=== PATIENT | female | born 1965 | race African-American/Black ===

== ENCOUNTER 2018-02-26 11:19 | Inpatient (IN) | payer OTHER ==
[~2018-02-26] VITALS: Ht 154.9 cm; Wt 120.8 kg
[2018-02-26 11:34] VITALS: Ht 154.9 cm; Wt 120.8 kg
[2018-02-26 13:05] LABS: CALCIUM 9.7 mg/dL (8.5-10.1); CARBON DIOXIDE 24.2 mmol/L (21-32); CHLORIDE SERUM 102 mmol/L (98-107); CREATININE SERUM 0.8 mg/dL (0.6-1.0); GFR1 > 60 mL/min; GLUCOSE SERUM 155 mg/dL (74-106); SODIUM SERUM 137 mmol/L (136-145)
[2018-02-26 13:08] LABS: ALBUMIN 3.5 g/dL (3.4-5.0); ALKALINE PHOSPHATASE 105 U/L (46-116); ALT/SGPT 20 U/L (14-59); AMYLASE 41 U/L (25-115); AST/SGOT 12 U/L (15-37); BILIRUBIN TOTAL 0.5 mg/dL (0.20-1.00); LIPASE 167 IU/L (73-393)
[2018-02-26 13:09] LABS: TOTAL PROTEIN, SERUM 8.9 g/dL (6.4-8.2)
[2018-02-26 13:11] LABS: PLATELET COUNT 360 x10^3mcL (130-400); RED CELL DISTRIBUTION WIDTH 13.2 % (11.5-14.5)
[2018-02-26 13:57] LABS: UA SPECIFIC GRAVITY 1.015 (1.005-1.035); urine erythrocyte NEGATIVE (NEGATIVE)
[2018-02-26 14:08] LABS: microscopic required? YES
[2018-02-26 16:18] LABS: BAND NEUTROPHIL 8 % (0-10); BASOPHIL 0 % (0-2); METAMYELOCTE 1 % (0-2); MONOCYTE 4 % (0-7); MYELOCYTE 2 % (0-2); SEGMENTED NEUTROPHILS 70 % (37-75)
[2018-02-26 16:21] LABS: ovalocyte/elliptocyte 1+
[2018-02-26 16:23] LABS: PLATELET MORPHOLOGY PLATELETS NORMAL; rbc morphology (normal/abnorm) NORMAL (NORMAL)
[2018-02-26] MEDS ORDERED: LOT10 PO (19:01)
[2018-02-26] MEDS ORDERED: INVOKANA300 MG PO (19:03)
[2018-02-26 19:11] LABS: CHOLESTEROL/HDL RATIO 3.1; MAGNESIUM 2.3 mg/dL (1.8-2.4); PHOSPHOROUS 4.1 mg/dL (2.5-4.9)
[2018-02-26 19:16] LABS: T3 TOTAL 0.92 ng/mL
[2018-02-26 19:20] LABS: FREE T4 0.97 ng/dL (0.76-1.46); FREE THYROXINE INDEX 2.6 ug/dL (1.4-4.5); T4(THYROXINE) 9.9 ug/dL (4.7-13.3)
[2018-02-26 19:23] LABS: AMPHETAMINE QUAL UR NONE DETECTED (See below)
[2018-02-26 19:36] VITALS: BP 149/90
[2018-02-27 05:38] VITALS: BP 119/83
[2018-02-27 07:08] LABS: CALCIUM 8.7 mg/dL (8.5-10.1); CARBON DIOXIDE 21.7 mmol/L (21-32); CHLORIDE SERUM 105 mmol/L (98-107); CREATININE SERUM 0.7 mg/dL (0.6-1.0); GFR1 > 60 mL/min; GLUCOSE SERUM 127 mg/dL (74-106); MAGNESIUM 2.1 mg/dL (1.8-2.4); PHOSPHOROUS 4.1 mg/dL (2.5-4.9); POTASSIUM SERUM 4.8 mmol/L (3.5-5.1); SODIUM SERUM 141 mmol/L (136-145)
[2018-02-27 07:10] LABS: PLATELET COUNT 321 x10^3mcL (130-400); RED CELL DISTRIBUTION WIDTH 13.3 % (11.5-14.5)
[2018-02-27 09:11] VITALS: BP 127/81
[2018-02-27 10:45] LABS: ATYPICAL LYMPH 1 %; BAND NEUTROPHIL 0 % (0-10); BASOPHIL 0 % (0-2); MONOCYTE 7 % (0-7); SEGMENTED NEUTROPHILS 84 % (37-75)
[2018-02-27 10:47] LABS: PLATELET MORPHOLOGY PLATELETS NORMAL; rbc morphology (normal/abnorm) NORMAL (NORMAL)
[2018-02-27 16:55] VITALS: BP 148/100
[2018-02-27 21:08] VITALS: BP 127/74
[2018-02-28 05:19] VITALS: BP 113/74
[2018-02-28 06:12] LABS: BASOPHIL % 0.3 % (0-2); PLATELET COUNT 320 x10^3mcL (130-400); RED CELL DISTRIBUTION WIDTH 13.7 % (11.5-14.5)
[2018-02-28 06:29] LABS: CALCIUM 8.4 mg/dL (8.5-10.1); CARBON DIOXIDE 25.6 mmol/L (21-32); CHLORIDE SERUM 104 mmol/L (98-107); CREATININE SERUM 0.7 mg/dL (0.6-1.0); GFR1 > 60 mL/min; GLUCOSE SERUM 145 mg/dL (74-106); MAGNESIUM 2.1 mg/dL (1.8-2.4); PHOSPHOROUS 3.2 mg/dL (2.5-4.9); POTASSIUM SERUM 3.7 mmol/L (3.5-5.1); SODIUM SERUM 139 mmol/L (136-145)
[2018-02-28 08:00] VITALS: BP 132/82
[2018-02-28 17:08] VITALS: BP 150/99
[2018-02-28 19:10] VITALS: BP 142/93
[2018-03-01 06:11] LABS: BASOPHIL % 0.2 % (0-2); PLATELET COUNT 339 x10^3mcL (130-400); RED CELL DISTRIBUTION WIDTH 14.1 % (11.5-14.5)
[2018-03-01 06:34] LABS: CALCIUM 8.7 mg/dL (8.5-10.1); CARBON DIOXIDE 23.2 mmol/L (21-32); CHLORIDE SERUM 103 mmol/L (98-107); CREATININE SERUM 0.9 mg/dL (0.6-1.0); GFR1 > 60 mL/min; GLUCOSE SERUM 108 mg/dL (74-106); PHOSPHOROUS 3.4 mg/dL (2.5-4.9); POTASSIUM SERUM 3.8 mmol/L (3.5-5.1); SODIUM SERUM 139 mmol/L (136-145)
[2018-03-01 10:07] VITALS: BP 140/100
[2018-03-01 17:27] VITALS: BP 135/89
[2018-03-01 20:56] VITALS: BP 147/90
[2018-03-02 04:47] VITALS: BP 148/89
[2018-03-02 07:13] LABS: CALCIUM 8.9 mg/dL (8.5-10.1); CARBON DIOXIDE 23.1 mmol/L (21-32); CHLORIDE SERUM 102 mmol/L (98-107); CREATININE SERUM 0.7 mg/dL (0.6-1.0); GFR1 > 60 mL/min; GLUCOSE SERUM 126 mg/dL (74-106); MAGNESIUM 2.4 mg/dL (1.8-2.4); PHOSPHOROUS 3.4 mg/dL (2.5-4.9); POTASSIUM SERUM 4.3 mmol/L (3.5-5.1); SODIUM SERUM 138 mmol/L (136-145)
[2018-03-02 07:39] LABS: BASOPHIL % 0.3 % (0-2); PLATELET COUNT 391 x10^3mcL (130-400); RED CELL DISTRIBUTION WIDTH 12.8 % (11.5-14.5)
[2018-03-02 09:11] VITALS: BP 143/96
[2018-03-02 17:09] VITALS: BP 146/93
[2018-03-02 20:46] VITALS: BP 146/93
[2018-03-03 05:05] VITALS: BP 150/94
[2018-03-03 07:17] LABS: CALCIUM 8.9 mg/dL (8.5-10.1); CARBON DIOXIDE 22.7 mmol/L (21-32); CHLORIDE SERUM 101 mmol/L (98-107); CREATININE SERUM 0.7 mg/dL (0.6-1.0); GFR1 > 60 mL/min; GLUCOSE SERUM 138 mg/dL (74-106); MAGNESIUM 2.1 mg/dL (1.8-2.4); PHOSPHOROUS 3.7 mg/dL (2.5-4.9); POTASSIUM SERUM 3.6 mmol/L (3.5-5.1); SODIUM SERUM 137 mmol/L (136-145)
[2018-03-03 07:18] LABS: PLATELET COUNT 391 x10^3mcL (130-400); RED CELL DISTRIBUTION WIDTH 12.7 % (11.5-14.5)
[2018-03-03 10:10] VITALS: BP 145/91
[2018-03-03 12:31] LABS: ATYPICAL LYMPH 4 %; BAND NEUTROPHIL 0 % (0-10); BASOPHIL 0 % (0-2); MONOCYTE 6 % (0-7); SEGMENTED NEUTROPHILS 83 % (37-75)
[2018-03-03 12:32] LABS: rbc morphology (normal/abnorm) ABNORMAL (NORMAL)
[2018-03-03 12:33] LABS: PLATELET MORPHOLOGY PLATELETS NORMAL
[2018-03-03 15:42] VITALS: BP 142/94
[2018-03-03 20:29] VITALS: BP 137/84
[2018-03-04 05:37] VITALS: BP 134/86
[2018-03-04 06:54] LABS: BASOPHIL % 0.1 % (0-2); RED CELL DISTRIBUTION WIDTH 14.1 % (11.5-14.5)
[2018-03-04 07:03] LABS: CARBON DIOXIDE 13.6 mmol/L (21-32); CHLORIDE SERUM 102 mmol/L (98-107); CREATININE SERUM 0.9 mg/dL (0.6-1.0); GFR1 > 60 mL/min; GLUCOSE SERUM 128 mg/dL (74-106); MAGNESIUM 2.4 mg/dL (1.8-2.4); PHOSPHOROUS 3.9 mg/dL (2.5-4.9); POTASSIUM SERUM 3.5 mmol/L (3.5-5.1); SODIUM SERUM 137 mmol/L (136-145)
[2018-03-04 07:24] LABS: PLATELET COUNT 413 x10^3mcL (130-400)
[2018-03-04 09:15] VITALS: BP 130/87
[2018-03-04 15:56] VITALS: BP 156/99
[2018-03-04 19:45] VITALS: BP 140/87
[2018-03-05 05:49] VITALS: BP 151/89
[2018-03-05 06:52] LABS: BASOPHIL % 0.3 % (0-2); RED CELL DISTRIBUTION WIDTH 14.3 % (11.5-14.5)
[2018-03-05 07:26] LABS: CALCIUM 8.7 mg/dL (8.5-10.1); CARBON DIOXIDE 12.2 mmol/L (21-32); CHLORIDE SERUM 105 mmol/L (98-107); CREATININE SERUM 0.9 mg/dL (0.6-1.0); GFR1 > 60 mL/min; GLUCOSE SERUM 135 mg/dL (74-106); MAGNESIUM 2.4 mg/dL (1.8-2.4); PHOSPHOROUS 2.5 mg/dL (2.5-4.9); POTASSIUM SERUM 3.4 mmol/L (3.5-5.1); SODIUM SERUM 137 mmol/L (136-145)
[2018-03-05 07:29] LABS: PLATELET COUNT 493 x10^3mcL (130-400)
[2018-03-05 08:43] VITALS: BP 154/94
[2018-03-05 18:09] VITALS: BP 163/101
[2018-03-05 20:25] VITALS: BP 146/89
[2018-03-06 05:46] VITALS: BP 151/95
[2018-03-06 05:55] VITALS: BP 149/87
[2018-03-06 06:14] LABS: BASOPHIL % 0.4 % (0-2)
[2018-03-06 06:24] LABS: CALCIUM 8.9 mg/dL (8.5-10.1); CARBON DIOXIDE 16.2 mmol/L (21-32); CHLORIDE SERUM 111 mmol/L (98-107); CREATININE SERUM 0.9 mg/dL (0.6-1.0); GFR1 > 60 mL/min; GLUCOSE SERUM 129 mg/dL (74-106); MAGNESIUM 2.5 mg/dL (1.8-2.4); POTASSIUM SERUM 3.5 mmol/L (3.5-5.1); SODIUM SERUM 143 mmol/L (136-145)
[2018-03-06 06:29] LABS: PLATELET COUNT 498 x10^3mcL (130-400)
[2018-03-06 09:10] VITALS: BP 146/92
[2018-03-06 17:20] VITALS: BP 150/97
[2018-03-06 20:59] VITALS: BP 142/93
[2018-03-07 05:13] VITALS: BP 130/92
[2018-03-07 06:20] LABS: BASOPHIL % 0.2 % (0-2); CALCIUM 8.7 mg/dL (8.5-10.1); CARBON DIOXIDE 18.7 mmol/L (21-32); CHLORIDE SERUM 113 mmol/L (98-107); CREATININE SERUM 0.8 mg/dL (0.6-1.0); GFR1 > 60 mL/min; GLUCOSE SERUM 115 mg/dL (74-106); MAGNESIUM 2.5 mg/dL (1.8-2.4); PHOSPHOROUS 1.4 mg/dL (2.5-4.9); POTASSIUM SERUM 3.3 mmol/L (3.5-5.1); RED CELL DISTRIBUTION WIDTH 14.3 % (11.5-14.5); SODIUM SERUM 147 mmol/L (136-145)
[2018-03-07 06:33] LABS: PLATELET COUNT 448 x10^3mcL (130-400)
[2018-03-07 16:35] VITALS: BP 153/93
[2018-03-07 21:18] VITALS: BP 134/79
[2018-03-08 06:18] VITALS: BP 139/88
[2018-03-08 06:18] LABS: CALCIUM 8.6 mg/dL (8.5-10.1); CHLORIDE SERUM 109 mmol/L (98-107); CREATININE SERUM 0.9 mg/dL (0.6-1.0); GFR1 > 60 mL/min; GLUCOSE SERUM 266 mg/dL (74-106); MAGNESIUM 2.2 mg/dL (1.8-2.4); PHOSPHOROUS 1.1 mg/dL (2.5-4.9); POTASSIUM SERUM 3.4 mmol/L (3.5-5.1); SODIUM SERUM 143 mmol/L (136-145)
[2018-03-08 06:20] LABS: BASOPHIL % 0.3 % (0-2); RED CELL DISTRIBUTION WIDTH 14.5 % (11.5-14.5)
[2018-03-08 06:51] LABS: PLATELET COUNT 405 x10^3mcL (130-400)
[2018-03-08 09:15] VITALS: BP 140/89
[2018-03-08 17:21] VITALS: BP 136/90
[2018-03-08 20:39] VITALS: BP 148/102
[2018-03-09 05:51] VITALS: BP 126/88
[2018-03-09 07:16] LABS: BASOPHIL % 1.1 % (0-2); PLATELET COUNT 380 x10^3mcL (130-400); RED CELL DISTRIBUTION WIDTH 14.4 % (11.5-14.5)
[2018-03-09 07:58] LABS: CALCIUM 8.7 mg/dL (8.5-10.1); CARBON DIOXIDE 27.1 mmol/L (21-32); CHLORIDE SERUM 108 mmol/L (98-107); CREATININE SERUM 0.7 mg/dL (0.6-1.0); GFR1 > 60 mL/min; GLUCOSE SERUM 154 mg/dL (74-106); PHOSPHOROUS 1.6 mg/dL (2.5-4.9); POTASSIUM SERUM 3.2 mmol/L (3.5-5.1); SODIUM SERUM 144 mmol/L (136-145)
[2018-03-09 08:43] VITALS: BP 157/95
[2018-03-09 17:10] VITALS: BP 153/99
[2018-03-09 20:00] VITALS: BP 125/87
[2018-03-10 06:18] VITALS: BP 153/101
[2018-03-10 06:43] LABS: CALCIUM 8.4 mg/dL (8.5-10.1); CARBON DIOXIDE 28.6 mmol/L (21-32); CHLORIDE SERUM 109 mmol/L (98-107); CREATININE SERUM 0.8 mg/dL (0.6-1.0); GFR1 > 60 mL/min; GLUCOSE SERUM 154 mg/dL (74-106); MAGNESIUM 1.9 mg/dL (1.8-2.4); PHOSPHOROUS 2.2 mg/dL (2.5-4.9); POTASSIUM SERUM 3.2 mmol/L (3.5-5.1); SODIUM SERUM 145 mmol/L (136-145)
[2018-03-10 07:02] LABS: BASOPHIL % 1.4 % (0-2); PLATELET COUNT 336 x10^3mcL (130-400); RED CELL DISTRIBUTION WIDTH 14.3 % (11.5-14.5)
[2018-03-10 09:02] VITALS: BP 157/103
[2018-03-10 16:34] VITALS: BP 157/103
[2018-03-10 17:32] VITALS: BP 140/90
== END 2018-03-10 18:29 | disposition home or self-care (01) | DRG 378 ==
LOC: ED 11:19 → MU 18:30
PROVIDERS: Emergency Medicine; Family Medicine; Internal Medicine; Surgery
PROC: B548ZZA Ultrasonography of Superior Vena Cava, Guidance (ICD-10-PCS; 2018-03-06)
PROC: 02HV33Z Insertion of Infusion Device into Superior Vena Cava, Percutaneous Approach (ICD-10-PCS; principal; 2018-03-06 15:00)
PROC: 3E1M38Z Irrigation of Peritoneal Cavity using Irrigating Substance, Percutaneous Approach (ICD-10-PCS; 2018-03-07)
PROC: 3E0 Administration, Physiological Systems and Anatomical Regions, Introduction (ICD-10-PCS; 2018-03-07)
DX: K57.21 Diverticulitis of large intestine with perforation and abscess with bleeding (principal); K51.90 Ulcerative colitis, unspecified, without complications; K56.609 Unspecified intestinal obstruction, unspecified as to partial versus complete obstruction; Z68.43 Body mass index [BMI] 50.0-59.9, adult; E11.65 Type 2 diabetes mellitus with hyperglycemia; E66.01 Morbid (severe) obesity due to excess calories; K59.00 Constipation, unspecified; I10 Essential (primary) hypertension; N89.8 Other specified noninflammatory disorders of vagina; Z79.84 Long term (current) use of oral hypoglycemic drugs; Z98.51 Tubal ligation status; Z90.49 Acquired absence of other specified parts of digestive tract; Z90.89 Acquired absence of other organs; Z88.2 Allergy status to sulfonamides; Z83.79 Family history of other diseases of the digestive system
CPT/HCPCS: 82962; 83880; 84439; 87046; 87046-59; J0610; J1170; J1642; J1644; J1885; J2060; J2185; J2405; J2543; J2550; J2765; J3010; J3475; J3490; J7030; J7050; J7131; Q0092; Q0162; Q9966; Q9967